=== PATIENT | male | born 1940 | race Caucasian/White ===

== ENCOUNTER → 2020-07-15 | Outpatient (REF) | payer MEDICARE ==
[~2020-07-15] MED LIST: ADVA1AER2; ALLO300T; ALTA10CA; BABY81CH; CALA120T; CRES5TAB; GLUC850T; ISOS1TAB21; LASI40TA; LASI80TA; PAME50CA; januvia; lovaza
== END ==
LOC: M LAB REF 12:11
PROVIDERS: ATTEND Internal Medicine
DX: I13.0 Hypertensive heart and chronic kidney disease with heart failure and stage 1 through stage 4 chronic kidney disease, or unspecified chronic kidney disease (principal); I50.9 Heart failure, unspecified; N18.9 Chronic kidney disease, unspecified